=== PATIENT | male | born 1950 | race Caucasian/White ===

== ENCOUNTER 2016-07-12 13:17 | Emergency (ER) | payer BC, MEDICARE ==
[2016-07-12 13:47] VITALS: BP 138/71
--- NOTE | 2016-07-12 14:31 | UC ---
Lower Extremity/Ankle HPI - HPI Summary HPI Summary: right foot is red and swollen, the great toe joint is painful with movement and touch. - History of Current Complaint Chief Complaint: UC Stated Complaint: RT FOOT PAIN Time Seen by Provider: 07/12/16 14:03 Hx Obtained From: Patient Onset/Duration: Sudden Onset, Lasting Hours Severity Initially: Moderate Severity Currently: Moderate Pain Intensity: 6 Pain Scale Used: 0-10 Numeric Aggravating Factor(s): Standing, Ambulation Alleviating Factor(s): Rest Able to Bear Weight: Yes - Risk Factors Gout Risk Factors: Age Over 40, Male, Diabetes, Hypertension, Alcohol Abuse, Peripherial Vascular Disease - Allergies/Home Medications Allergies/Adverse Reactions: Allergies Allergy/AdvReac Type Severity Reaction Status Date / Time No Known Allergies Allergy Verified 07/12/16 13:35 Home Medications: Home Medications Eye Drops For [place] 07/12/16 [History] PMH/Surg Hx/FS Hx/Imm Hx Previously Healthy: Yes - Surgical History Surgical History: Yes Surgery Procedure, Year, and Place: BACK SURGERY- RUPTURED DISC - Family History Known Family History: Positive: Cardiac Disease, Hypertension - Social History Alcohol Use: Weekly Substance Use Type: None Smoking Status (MU): Former Smoker Type: Cigarettes When Did the Patient Quit Smoking/Using Tobacco: 7 YEARS AGO Review of Systems Constitutional: Negative Skin: Negative, Other - erythema in left foot to ankle Eyes: Negative ENT: Negative Respiratory: Negative Cardiovascular: Negative Gastrointestinal: Negative Genitourinary: Negative Motor: Negative Neurovascular: Negative Musculoskeletal: Arthralgia, Edema, Myalgia Neurological: Negative Psychological: Negative All Other Systems Reviewed And Are Negative: Yes Physical Exam Triage Information Reviewed: Yes Appearance: Well-Appearing, Well-Nourished, Pain Distress Vital Signs: Initial Vital Signs Temp 98.7 F 07/12/16 13:36 Pulse 58 07/12/16 13:36 Resp 20 07/12/16 13:36 BP 138/71 07/12/16 13:36 Pulse Ox 96 07/12/16 13:36 Vital Signs Reviewed: Yes Eye Exam: Normal Eyes: Positive: Conjunctiva Clear ENT Exam: Normal ENT: Positive: Normal ENT inspection, Hearing grossly normal, Pharynx normal, TMs normal Dental Exam: Normal Neck exam: Normal Neck: Positive: Supple, Nontender, No Lymphadenopathy Respiratory Exam: Normal Respiratory: Positive: Chest non-tender, Lungs clear, Normal breath sounds Cardiovascular Exam: Normal Cardiovascular: Positive: RRR, No Murmur, Pulses Normal Abdominal Exam: Normal Abdomen Description: Positive: Nontender, No Organomegaly, Soft Bowel Sounds: Positive: Present Musculoskeletal: Positive: Strength Intact, Edema @ - right foot Neurological Exam: Normal Neurological: Positive: Alert, Muscle Tone Normal Psychological Exam: Normal Skin: Positive: Other - no abraision, left foot is red and swollen, started 1 day ago. Lower Extremity Course/Dx - Course Course Of Treatment: hx obtained, exam performed, meds reviewed, consulted with Dr Heath. CBC obtained, treated for cellulitis, cbc obtained [place] the next few weeks. prednisone for possible gout in great toe. encouraged patient to follow up in 2 days if not improving. - Differential Dx/Diagnosis Differential Diagnosis/HQI/PQRI: Contusion, Dislocation, Fracture (Closed), Gout , Sprain, Strain Provider Diagnoses: swollen foot. erythema. right great toe pain Discharge - Discharge Plan Condition: Stable Disposition: HOME Prescriptions: Cephalexin CAP* [Keflex CAP*] 500 mg PO TID #21 cap predniSONE TAB* [Deltasone TAB*] 40 mg PO DAILY #10 tab Patient Education Materials: Cellulitis (ED) Additional Instructions: We are going to treat you for possible cellulitis with the Keflex. Blood work was obtained to look for infection. I am also prescribing prednisone to help with the inflammation of the great toe for possible Gout. You may continue with your current aleve twice a day. rest and elevate foot as much as possible.
[2016-07-12 19:24] LABS: Hematocrit 45 % (42-52); Hemoglobin 15.4 g/dl (14.0-18.0); Mean Corpuscular HGB Conc 34 g/dl (31-36); Mean Corpuscular Hemoglobin 30 pg (27-31); Mean Corpuscular Volume 88 fL (80-94); Mean Platelet Volume 9 um3 (7.4-10.4); Red Blood Count 5.08 10^6/ul (4.0-5.4); Red Cell Distribution Width 13 % (10.5-15); White Blood Count 12.7 10^3/ul (3.5-10.8)
== END 2016-07-12 15:08 | disposition home or self-care (01) ==
LOC: UCCORT 13:17
DX: M79.674 Pain in right toe(s) (principal); M79.89 Other specified soft tissue disorders; L53.9 Erythematous condition, unspecified; Z87.891 Personal history of nicotine dependence
CPT/HCPCS: 36415; 85025; 99212; G0463

== ENCOUNTER 2018-07-31 11:06 | Emergency (ER) | payer MEDICARE ==
[2018-07-31 12:18] VITALS: BP 140/86
--- NOTE | 2018-07-31 12:58 | UC ---
Skin Complaint HPI - HPI Summary HPI Summary: Pt c/o tender, erythematous area on mid left forearm at site of EMG probe that was done yesterday. Pt sates that he began to have redness and pain in left forearm last evening after having nerve conduction test yesterday with Dr. Jackman. - History of Current Complaint Chief Complaint: UCSkin Time Seen by Provider: 07/31/18 12:50 Stated Complaint: LEFT ARM CONCERN Hx Obtained From: Patient Onset/Duration: Gradual Onset, Lasting Hours, Still Present, Worse Since - onset Skin Exposure Onset/Duration: Hours Ago Timing: Constant Onset Severity: Mild Current Severity: Mild Pain Intensity: 1 Location: Discrete - left mid anterior forearm Character: Pain, Redness, Raised, Painful Aggravating Factor(s): Touch Alleviating Factor(s): Unknown Associated Signs & Symptoms: Positive: Tenderness Related History: Trauma - Allergy/Home Medications Allergies/Adverse Reactions: Allergies Allergy/AdvReac Type Severity Reaction Status Date / Time No Known Allergies Allergy Verified 07/31/18 12:05 Home Medications: Home Medications DULoxetine DR CAP* [Cymbalta CAP*] 20 mg PO DAILY 07/31/18 [History Confirmed ] PMH/Surg Hx/FS Hx/Imm Hx Previously Healthy: Yes Cardiovascular History: Cardiac Disease Neurological History: Other - needed nerve conduction test - Surgical History Surgical History: Yes Surgery Procedure, Year, and Place: BACK SURGERY- RUPTURED DISC; SKIN GRAFT FOR BROKEN LEG - Family History Known Family History: Positive: Cardiac Disease, Hypertension - Social History Occupation: Retired Lives: With Family Alcohol Use: None Substance Use Type: None Smoking Status (MU): Former Smoker Type: Cigarettes Have You Smoked in the Last Year: No When Did the Patient Quit Smoking/Using Tobacco: 7 YEARS AGO - Immunization History Most Recent Tetanus Shot: unknown Review of Systems All Other Systems Reviewed And Are Negative: Yes Constitutional: Positive: Negative Skin: Positive: Rash, Other - erythema Eyes: Positive: Negative ENT: Positive: Negative Respiratory: Positive: Negative Cardiovascular: Positive: Negative Gastrointestinal: Positive: Negative Genitourinary: Positive: Negative Motor: Positive: Negative Neurovascular: Positive: Negative Musculoskeletal: Positive: Negative Neurological: Positive: Negative Psychological: Positive: Negative Is Patient Immunocompromised?: No Physical Exam Triage Information Reviewed: Yes Appearance: Well-Appearing Vital Signs: Initial Vital Signs Temp 97.8 F 07/31/18 12:07 Pulse 53 07/31/18 12:07 Resp 18 07/31/18 12:07 BP 140/86 07/31/18 12:07 Pulse Ox 100 07/31/18 12:07 Vital Signs Reviewed: Yes Eye Exam: Normal ENT Exam: Normal Dental Exam: Normal Neck exam: Normal Respiratory Exam: Normal Respiratory: Positive: No respiratory distress Musculoskeletal Exam: Normal Musculoskeletal: Positive: Strength Intact, ROM Intact Neurological Exam: Normal Psychological Exam: Normal Skin Exam: Other - erythematous oval shaped area left mid forearm 3cm X 1 CM with firm moveable area below insertion site of EMG probe. Pt denies coagulation disorder or HX of DVT Course/Dx - Course Course Of Treatment: I discussed with the pt my concern for hematoma and pt verbalized understanding and agreed to plan of care. - Differential Diagnoses - Skin Complaint Differential Diagnoses: Cellulitis - Diagnoses Provider Diagnosis: Cellulitis of left forearm, Hematoma Discharge - Sign-Out/Discharge Documenting (check all that apply): Patient Departure All imaging exams completed and their final reports reviewed: No Studies - Discharge Plan Condition: Stable Disposition: HOME Prescriptions: Cephalexin CAP* [Keflex 500 CAP*] 500 mg PO Q8H #21 cap Patient Education Materials: Cellulitis (ED), Hematoma (ED) Referrals: Chavez Erazo MD [Primary Care Provider] - As Soon As Possible - Billing Disposition and Condition Condition: STABLE Disposition: Home
== END 2018-07-31 13:04 | disposition home or self-care (01) ==
LOC: UCCORT 11:06
DX: L03.114 Cellulitis of left upper limb (principal); S50.12XA Contusion of left forearm, initial encounter; Z87.891 Personal history of nicotine dependence; X58.XXXA Exposure to other specified factors, initial encounter; Y92.9 Unspecified place or not applicable
CPT/HCPCS: 99212; G0463

== ENCOUNTER 2018-09-19 10:47 | Day surgery (SDC) | payer MEDICARE ==
[~2018-09-19 10:47] MED LIST: Buffered Lidocaine 1% SYRIN* 1 ML/SYRINGE INTRADERM ONE; Famotidine IV* 10 MG/ML 2 ML (20 mg) IV ONE; Lactated Ringers 1000 ML Bag* 1,000 ML IV SCH
[2018-09-19] MEDS ORDERED: ceFAZolin 2 GM PREMIX in ORs 2 GM/50 ML BAG IVPB ONE (11:58)
[2018-09-19] MEDS ORDERED: Famotidine IV* 10 MG/ML 2 ML (20 mg) ONE (11:58)
[2018-09-19] MEDS ORDERED: Buffered Lidocaine 1% SYRIN* 1 ML/SYRINGE INTRADERM ONE (11:58)
[2018-09-19] MEDS ORDERED: fentaNYL* 50 MCG/ML 2 ML VIAL (100 MCG VIAL) ONE (14:56)
[2018-09-19] MEDS ORDERED: Propofol* 10 MG/ML 20 ML BTL ONE ×2 (14:56→16:28)
[2018-09-19] MEDS ORDERED: Midazolam* 1 MG/ML 5 ML VIAL (5 MG) ONE (14:56)
[2018-09-19] MEDS ORDERED: Dexamethasone IV* 4 MG/ML 1 ML (4 MG) ONE (14:56)
[2018-09-19] MEDS ORDERED: Ondansetron INJ* 2 MG/ML VIAL ONE (14:56)
[2018-09-19] MEDS ORDERED: Lidocaine 2% PF * 5 ML VIAL ONE (14:56)
[2018-09-19] MEDS ORDERED: Bupivacaine 0.25% SDV PF* 10 ML VIAL INJ ONE (15:19)
[2018-09-19] MEDS ORDERED: Naloxone* 0.4 MG/ML 1 ML VIAL IV PRN (16:24)
[2018-09-19] MEDS ORDERED: fentaNYL* 50 MCG/ML 2 ML VIAL (100 MCG VIAL) IV PRN (16:24)
[2018-09-19] MEDS ORDERED: Ondansetron INJ* 2 MG/ML VIAL IV PRN (16:24)
[2018-09-19 17:09] VITALS: BP 160/80
== END 2018-09-19 17:27 | disposition home or self-care (01) ==
LOC: OR 10:47
PROVIDERS: ATTEND Plastic Surgery
DX: G56.22 Lesion of ulnar nerve, left upper limb (principal); G47.33 Obstructive sleep apnea (adult) (pediatric); M19.90 Unspecified osteoarthritis, unspecified site; I10 Essential (primary) hypertension; M10.9 Gout, unspecified
CPT/HCPCS: J0690; J1100; J2250; J2405; J2704; J3010; J3490

== ENCOUNTER 2019-05-29 07:02 | Observation (INO) | payer MEDICARE ==
--- NOTE | 2019-05-21 15:49 | HP ---
HISTORY AND PHYSICAL: DATE OF ADMISSION/SURGERY: 05/29/19 DATE OF OFFICE VISIT: 05/21/19 SURGEON: Barbie Mathias MD * (DICTATED BY STERLING MORGAN) PROCEDURE: Left total hip arthroplasty. CHIEF COMPLAINT: Left hip pain. HISTORY OF PRESENT ILLNESS: Mr. 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 He has failed conservative treatment and elected to proceed with a left total hip arthroplasty. PAST MEDICAL HISTORY: Hypertension and sleep apnea. PAST SURGICAL HISTORY: Ulnar nerve decompression and low back surgery. CURRENT MEDICATIONS: 1. Amlodipine 5 mg a day. 2. Latanoprost. 3. Duloxetine 20 mg a day. 4. Brimonidine tartrate 0.2%. ALLERGIES: No known drug allergies. FAMILY HISTORY: Coronary artery disease, cancer, and diabetes. SOCIAL HISTORY: This 68-year-old gentleman lives with his . He does not smoke, use drugs or alcohol. REVIEW OF SYSTEMS: A complete 14-point review of systems was reviewed with the patient. It was all negative or noncontributory. He denies history of DVT, PE , hepatitis, HIV, or anesthesia problems. PHYSICAL EXAMINATION GENERAL: He is well developed, well nourished, in no acute distress. VITAL SIGNS: He stands 68 inches tall, weighs 238 pounds. His blood pressure is 146/90, his heart rate is 74. HEENT: Normocephalic, atraumatic. NECK: Supple. No palpable lymph nodes. PULMONARY: The lungs are clear to auscultation bilaterally. CARDIO: Regular rate and rhythm. Strong S1, S2. ABDOMEN: Soft, nontender, nondistended. NEUROLOGICAL: He is alert and oriented x3. MUSCULOSKELETAL: Left lower extremity: The skin is intact. There are no open wounds or abrasions. He walks with antalgic-type gait favoring his left hip. He has decreased internal and external rotation of the left hip. He is able to dorsiflex and plantar flex. He has a 2+ dorsalis pedis pulse and intact sensation. ASSESSMENT AND PLAN: Mr. Landry is a 68-year-old female with severe end- stage osteoarthritis of the left hip. He has failed conservative treatment and elected to proceed with a left total hip arthroplasty. The surgery is scheduled for 05/29/[address] Mathias discussed the risks and benefits of the surgery at today's visit and all of his questions were answered. He will follow up with Dr. Mathias 2 weeks after the surgery. STERLING MORGAN [id number]/[facility] #: [id number] CHARITY
[~2019-05-29 07:02] MED LIST changes: +Acetaminophen TAB* 325 MG PO ONE; -Famotidine IV* 10 MG/ML 2 ML (20 mg) IV ONE; +Tranexamic Acid 1,000 MG in NS 0.9% 50 ML* (outpatient use) IV SCH; +celeCOXIB CAP* 200 MG PO ONE
--- OUTSIDE RECORDS SUMMARY | 2019-05-29 07:06 | XMS REPORT | Continuity of Care Document ---
:1950 External Reference #:[id number] Author Name Barbie Mathias M.D. (transmitted by agent of provider Meredith Hassan) Address [address] [place] [address] Care Team Providers Name Role Phone Chavez Erazo MD - Internal Care Team Information Director Of [employer] [phone] Medicine Problems Active Problems Provider Date Localized, primary osteoarthritis of the pelvic Barbie Mathias M.D. Onset: 10/2018 region and thigh Difficulty breathing Julia Romo M.D. Onset: 06/19/2014 Social History Type Date Description Comments Sex Unknown ETOH Use Denies alcohol use ETOH Use Occasionally consumed wine in the past ETOH Use Occasionally consumed beer in the past Tobacco Use Start: Unknown End: Patient is a former Unknown smoker Smoking Status Reviewed: 05/21/19 Patient is a former smoker Exercise Exercises sporadically arm work 2 hrs a day Type/Frequency walking Allergies, Adverse Reactions, Alerts Description No Known Drug Allergies Medications Active Medications SIG Qnty Indications Ordering Provider Date Brimonidine Tartrate 1 drop in each Unknown 0.2% eye twice a day Solution Latanoprost 1 drop in each Barno-Lemon, 0.005% Solution eye at bed time Andrzej, OD Duloxetine HCL 1 tablet by Unknown 20mg Caps DR mouth daily Part Acetaminophen 2 every 6 hours Unknown 500mg Tablets as needed Alphagan P 1 drop both eyes Unknown 0.1% Solution twice a day Amlodipine Besylate 1 by mouth every Unknown 5mg day Tablets Ferosul 1 every other Unknown 325(65Fe) mg day. Tablets Medications Administered in Office Medication SIG Qnty Indications Ordering Provider Date Depomedrol 40MG Barbie Mathias M.D. 03/19/2019 Injection Immunizations Description No Information Available Vital Signs Date Vital Result Comment 05/21/2019 11:18am Height 68 inches Weight 238.00 lb BP Systolic 146 mmHg BP Diastolic 90 mmHg Respiratory Rate 16 /min Body Temperature 97.9 F Pain Level 0 BMI (Body Mass Index) 36.2 kg/m2 05/21/2019 8:25am Height 68 inches 5'8" Weight 239.00 lb with shoes Heart Rate 60 /min BP Systolic 120 mmHg Ra BP Diastolic 80 mmHg Ra BP Systolic Sitting 122 mmHg LA BP Diastolic Sitting 82 mmHg LA BP Systolic Standing 120 mmHg LA BP Diastolic Standing 80 mmHg LA BMI (Body Mass Index) 36.3 kg/m2 Ejection Fraction NONE Results Test Acquired Date Facility Test Result H/L Range Note Laboratory test 05/21/2019 [facility] B-Type <pending> finding [address] [place] [address] Peptide BNP [phone] Procedures Date Code Description Status 05/21/2019 94663 EKG Tracing & Interpretation Completed 03/19/2019 32159 Inj/Aspir Major JT Or Bursa W/ US Completed Medical Devices Description No Information Available Encounters Type Date Location Provider Dx Diagnosis Office Visit 03/19/2019 [facility] Barbie Mathias, M25.552 Pain in left hip 9:30a at [facility] M16.12 Unilateral primary osteoarthritis, left hip Assessments Date Code Description Provider 05/21/2019 M25.552 Pain in left hip Barbie Mathias M.D. 05/21/2019 Z01.810 Encounter for preprocedural Shivam Mullins DO [facility] cardiovascular examination 05/21/2019 M16.12 Unilateral primary osteoarthritis, left Barbie Mathias M.D. hip 05/21/2019 I10 Essential (primary) hypertension Shivam Mullins DO [facility] 05/21/2019 F17.201 Nicotine dependence, unspecified, in Shivam Mullins DO [facility] remission 05/21/2019 R06.02 Shortness of breath Shivam Mullins DO [facility] 03/19/2019 M25.552 Pain in left hip Barbie Mathias M.D. 03/19/2019 M16.12 Unilateral primary osteoarthritis, left Barbie Mathias M.D. hip Plan of Treatment Future Appointment(s):06/09/2019 1:15 pm - Barbie Mathias M.D. at [facility] at [id number]/27/2019 8:45 am - Shivam Mullins DO [facility] at [facility]05/29/2019 10:30 am - Roger Fontenot PA-C at [facility] at Wybtst3505/29/2019 10:30 am - STERLING Calderón at [facility] at Ybvhrp7905/29/2019 10:30 am - Barbie Mathias M.D. at [facility] at [id number] - Barbie Mathias M.D.M25.552 Pain in left hipFollow up:Follow up: 2 weeks after odclyiwH94.12 Unilateral primary osteoarthritis, left hip Functional Status Description No Information Available Mental Status Description No Information Available Referrals Description No Information Available
--- OUTSIDE RECORDS SUMMARY | 2019-05-29 07:06 | XMS REPORT | Continuity of Care Document ---
:1950 External Reference #:[id number] Author Name Chavez Erazo MD Address [address] [place] [id number] Care Team Providers Name Role Phone Chavez Erazo MD FACP - Care Team Information Meat Lugger [phone] Internal Medicine [facility] - Care Team Information Meat Lugger Pain Julia Romo MD - Cardiovascular Care Team Information Meat Lugger Disease Kris Flores - Otolaryngology Care Team Information Meat Lugger [phone] Nigel Henderson MD - Facial Plastic Care Team Information Meat Lugger Surgery Barbie Mathias - Orthopaedic Surgery Care Team Information Meat Lugger Abraham Patrick MD - Care Team Information Meat Lugger [phone] Gastroenterology Problems Active Problems Provider Date Obesity Chavez Erazo MD Onset: 02/07/2007 Obstructive sleep apnea syndrome Chavez Erazo MD Onset: Essential hypertension Chavez Erazo MD Onset: 07/03/2007 Mixed hyperlipidemia Chavez Erazo MD Onset: 02/28/2007 Alcoholic liver damage Chavez Erazo MD Onset: 05/02/2007 Depressive disorder Chavez Erazo MD Onset: 05/02/2007 Alcoholic fatty liver Cahvez Erazo MD Onset: 06/15/2009 Gastroesophageal reflux disease Chavez Erazo MD Onset: 05/02/2011 Large liver Chavez Erazo MD Onset: 10/30/2011 Impaired fasting glycaemia Chavez Erazo MD Onset: 02/05/2013 Spinal stenosis in cervical region Chavez Erazo MD Onset: 08/06/2018 Bilateral carpal tunnel syndrome Chavez Erazo MD Onset: 08/06/2018 Lesion of ulnar nerve Chavez Erazo MD Onset: 08/06/2018 Degenerative joint disease involving multiple Chavez Erazo MD Onset: joints Multiple skin tags Chavez Erazo MD Onset: 07/18/2017 Social History Type Date Description Comments Sex Unknown Tobacco Use Start: Unknown End: Former Cigarette Smoker 1PPD since age 19 Unknown till 57 Smoking Status Reviewed: 12/13/07 Former Cigarette Smoker 1PPD since age 19 till 57 ETOH Use 05/2013 Has consumed alcohol in Three 12 packs per the past week till early 2007. One to two 6 packs from 2007 till late 2008. "Two 12 pack a week" till 05/2013. Last use was in March of 2018. Recreational Drug Use Denies Drug Use Tobacco Use Start: Unknown End: Patient is a former Unknown smoker Exercise Type/Frequency Exercises sporadically Tattoo/Piercing Tattoo Left leg Allergies, Adverse Reactions, Alerts Description No Known Drug Allergies Medications Active Medications SIG Qnty Indications Ordering Date Provider Amlodipine Besylate take 1 tablet by 30tabs I10 Chavez A 05/16/2019 mouth daily for MD Kacey 5mg Tablets high blood pressure Duloxetine HCL Take One Capsule By 30caps F32.9 Chavez A 04/02/2018 20mg Mouth Every Day For MD Kacey Caps [facility] M25.552 M79.604 Tamsulosin HCL Take One Capsule By 30caps N40.3 Chavez Erazo, 2017 0.4mg Mouth Every Day 30 MD Capsules Minutes After Same Meal Each Day For Enlarged Prostate Apap Every night 327.23 Kris Flores 07/13/2014 Latanoprost Instill 1 drop into 365.71 Unknown 06/09/2014 0.005% both eyes daily in Solution the evening for glaucoma Alphagan P 1 drop in each eye 365.9 Unknown 07/12/2012 0.1% Solution twice daily Immunizations CPT Code Status Date Vaccine Lot # 23688 Given 02/04/2019 Influenza Vaccine Quadrivalent [id number] Preser/Antibiotic Free Im Use 04874 Given 01/24/2019 Shingrix (Shingles) Vaccine 80624 Given 01/30/2018 Influenza Virus Vaccine, Quadrivalent [id number] ([id number]), Derived From Cell 12568 Given 02/07/2017 Pneumococcal Vaccine 2Yrs Or Older [id number] 14132 Given 01/24/2017 Influenza Vaccine Not Specified Administered Age 3 And Older 01233 Given 01/24/2017 Influenza Vaccine Quadrivalent [id number] Preser/Antibiotic Free Im Use 04382 Given 02/25/2015 Influenza Virus Split 3 Yrs And Above For Flu [id number] Intramuscular Use 45073 Given 04/03/2014 Influenza Virus Split 3 Yrs And Above For Tdap [id number] Intramuscular Use 17075 Given 02/05/2013 Influenza Virus Split 3 Yrs And Above For FLU [id number] Intramuscular Use 12897 Given 05/30/2012 Zoster Shingles Vaccine For Subcutaneous Injection 19704 Given 02/26/2012 Pneumococcal Vaccine 2Yrs Or Older PNEUMO [id number] 12488 Given 02/26/2012 Tdap-Tetanus, Diphtheria Toxoids/Acellular TDAP [id number] Pertussis Vaccine 7+ 16350 Given 02/26/2012 Influenza Virus Split 3 Yrs And Above For FLU [id number] Intramuscular Use 81126 Given 03/06/2011 Influenza Virus Split 3 Yrs And Above For Intramuscular Use 58968 Given 03/29/2010 Influenza Virus Split 3 Yrs And Above For Intramuscular Use 71549 Given 05/04/2008 Influenza Virus Vaccine Split Virus Use For FLU [id number] Individual 3Yr Older 76248 Given 03/01/2007 Pneumococcal Vaccine 2Yrs Or Older PNEUMO [id number] 79519 Given 03/01/2007 Influenza Virus Vaccine Split Virus Use For INF [id number] Individual 3Yr Older 86647 Given 06/14/2004 Tetanus Toxoid Adsorbed, For Intramuscular Use Vital Signs Date Vital Result Comment 05/21/2019 9:56am Heart Rate 78 /min BP Systolic 150 mmHg BP Diastolic 80 mmHg Weight 240.00 lb 04/30/2019 11:25am Heart Rate 64 /min BP Systolic 155 mmHg BP Diastolic 85 mmHg Weight 235.00 lb Results Test Acquired Date Facility Test Result H/L Range Note CBC No Diff 05/03/2019 [facility] White Blood 11.0 10^3/uL High 3.5-10.8 [place] [address] Count [phone] Red Blood Count 4.91 10^6/uL Normal 4.18-5.48 Hemoglobin 15.4 g/dL Normal 14.0-18.0 Hematocrit 43 % Normal 42-52 Mean Corpuscular Volume 87 fL Normal 80-94 Mean Corpuscular Hemoglobin 31 pg Normal 27-31 Mean Corpuscular HGB Conc 36 g/dL Normal 31-36 Red Cell Distribution Width 14 % Normal 10-15 Platelet Count 239 10^3/uL Normal 150-450 Mean Platelet Volume 8.7 fL Normal 7.4-10.4 Comp Metabolic 05/03/2019 [facility] Sodium 139 mmol/L Normal 135-145 [place] [address] [phone] Potassium 4.2 mmol/L Normal 3.5-5.0 Chloride 105 mmol/L Normal 101-111 Co2 Carbon Dioxide 24 mmol/L Normal 22-32 Anion Gap 10 mmol/L Normal 2-11 Glucose 118 mg/dL High 70-100 Blood Urea Nitrogen 13 mg/dL Normal 6-24 Creatinine 0.84 mg/dL Normal 0.67-1.17 BUN/Creatinine Ratio 15.5 Normal 8-20 Calcium 9.1 mg/dL Normal 8.6-10.3 Total Protein 7.0 g/dL Normal 6.4-8.9 Albumin 4.7 g/dL Normal 3.2-5.2 Globulin 2.3 g/dL Normal 2-4 Albumin/Globulin Ratio 2.0 Normal 1-3 Total Bilirubin 0.80 mg/dL Normal 0.2-1.0 Alkaline Phosphatase 117 U/L High 34-104 Alt 64 U/L High 7-52 Ast 41 U/L High 13-39 Egfr Non- 91.1 >60 Egfr 110.3 >60 1 Laboratory test 05/03/2019 [facility] Hemoglobin A1c 5.6 % Normal 4.0-5.6 2 [place] [address] (Glyco HGB) [phone] GGTP 47 U/L Normal 9-64.0 3 Order 04/30/2019 [facility] [place] [address] [phone] Inr/Protime 02/05/2019 [facility] Inr 1.07 Normal 0.82-1.0 4 [place] [address] 9 [phone] Laboratory test 02/05/2019 [facility] GGTP 45 U/L Normal 9- 64.0 [place] [address] [phone] Hemoglobin A1c (Glyco HGB) 5.7 % High 4.0-5.6 5 Comp Metabolic 02/05/2019 [facility] Sodium 140 mmol/L Normal 135-[place] [address] [phone] Potassium 4.5 mmol/L Normal 3.5-5.0 Chloride 106 mmol/L Normal 101-111 Co2 Carbon Dioxide 26 mmol/L Normal 22-32 Anion Gap 8 mmol/L Normal 2-11 Glucose 128 mg/dL High 70-100 Blood Urea Nitrogen 13 mg/dL Normal 6-24 Creatinine 0.81 mg/dL Normal 0.67-1.17 BUN/Creatinine Ratio 16.0 Normal 8-20 Calcium 9.1 mg/dL Normal 8.6-10.3 Total Protein 6.6 g/dL Normal 6.4-8.9 Albumin 4.4 g/dL Normal 3.2-5.2 Globulin 2.2 g/dL Normal 2-4 Albumin/Globulin Ratio 2.0 Normal 1-3 Total Bilirubin 0.70 mg/dL Normal 0.2-1.0 Alkaline Phosphatase 117 U/L High 34-104 Alt 76 U/L High 7-52 Ast 48 U/L High 13-39 Egfr Non- 95.1 >60 Egfr 115.0 >60 6 Xray 02/05/2019 [facility] Hips, Bilateral, Min. Of 2 Veiw/Hip OA [address] [place] [address] [phone] 1 Because ethnic data is not always readily available, this report includes an eGFR for both -Americans and non- Americans. The National Kidney Disease Education Program (NKDEP) does not endorse the use of the MDRD equation for patients that are not between the ages of 18 and 70, are , have extremes of body size, muscle mass, or nutritional status, or are non- or non-. According to the National Kidney Foundation, irrespective of diagnosis, the stage of the disease is based on the level of kidney function: Stage Description GFR(mL/min/1.73 m(2)) 1 Kidney damage with normal or decreased GFR 90 2 Kidney damage with mild decrease in GFR 60-89 3 Moderate decrease in GFR 30-59 4 Severe decrease in GFR 15-29 5 Kidney failure <15 (or dialysis) 2 Therapeutic target for the treatment of diabetes mellitus patients is <7% HBA1C, and in selective patients <6.0%. Please refer to [place] [employer] Association diabetic care guidelines for further information. 3 FASTING 4 Standard intensity warfarin therapeutic range: 2.0-3.0 High intensity warfarin therapeutic range: 2.5-3.5 5 Therapeutic target for the treatment of diabetes mellitus patients is <7% HBA1C, and in selective patients <6.0%. Please refer to [place] [employer] diabetic care guidelines for further information. 6 Because ethnic data is not always readily available, this report includes an eGFR for both -Americans and non- Americans. The National Kidney Disease Education Program (NKDEP) does not endorse the use of the MDRD equation for patients that are not between the ages of 18 and 70, are , have extremes of body size, muscle mass, or nutritional status, or are non- or non-. According to the National Kidney Foundation, irrespective of diagnosis, the stage of the disease is based on the level of kidney function: Stage Description GFR(mL/min/1.73 m(2)) 1 Kidney damage with normal or decreased GFR 90 2 Kidney damage with mild decrease in GFR 60-89 3 Moderate decrease in GFR 30-59 4 Severe decrease in GFR 15-29 5 Kidney failure <15 (or dialysis) Procedures Date Code Description Status 04/30/2019 76783 Electrocardiogram Complete Completed 01/20/2019 509196145 Diabetic Retinal Eye Exam Completed 08/24/2017 84130132 Colonoscopy Completed 09/10/2012 [id number] Colonoscopy Completed Medical Devices Description No Information Available Encounters Type Date Location Provider Dx Diagnosis Office Visit 05/21/2019 Main Office Chavez Erazo, I10 Essential ( primary) 9:40a hypertension R16.0 Hepatomegaly, not elsewhere classified Office Visit 04/30/2019 11:20a Main Office Chavez Anne Z01.818 Encounter for other MD Kacey preprocedural examination I10 Essential (primary) hypertension R16.0 Hepatomegaly, not elsewhere classified K70.0 Alcoholic fatty liver R73.01 Impaired fasting glucose M25.552 Pain in left hip Office Visit 02/04/2019 10:40a Main Office Chavez Anne Z00.01 Encounter for MD Kacey general adult medical exam w abnormal findings R16.0 Hepatomegaly, not elsewhere classified K70.0 Alcoholic fatty liver I10 Essential (primary) hypertension R73.01 Impaired fasting glucose M25.552 Pain in left hip Z23 Encounter for immunization Assessments Date Code Description Provider 05/21/2019 I10 Essential (primary) hypertension Chavez Erazo MD 05/21/2019 R16.0 Hepatomegaly, not elsewhere classified Chavez Erazo MD 04/30/2019 Z01.818 Encounter for other preprocedural Chavez Erazo MD examination 04/30/2019 I10 Essential (primary) hypertension Chavez Erazo MD 04/30/2019 R16.0 Hepatomegaly, not elsewhere classified Chavez Erazo MD 04/30/2019 K70.0 Alcoholic fatty liver Chavez Erazo MD 04/30/2019 R73.01 Impaired fasting glucose Chavez Erazo MD 04/30/2019 M25.552 Pain in left hip Chavez Erazo MD 02/04/2019 Z00.01 Encounter for general adult medical Chavez Erazo MD examination with abnormal findings 02/04/2019 R16.0 Hepatomegaly, not elsewhere classified Chavez Erazo MD 02/04/2019 K70.0 Alcoholic fatty liver Chavez Erazo MD 02/04/2019 I10 Essential (primary) hypertension Chavez Erazo MD 02/04/2019 R73.01 Impaired fasting glucose Chavez Erazo MD 02/04/2019 M25.552 Pain in left hip Chavez Erazo MD 02/04/2019 Z23 Encounter for immunization Chavez Erazo MD Plan of Treatment Future Appointment(s):07/07/2019 11:00 am - Chavez Erazo MD at Main [id number]/21/2019 - Chavez Erazo MDI10 Essential (primary) hypertensionComments:Clinically stable and asymptomatic. Advised to continue Rx and will follow after stress test on BP control.R16.0 Hepatomegaly, not elsewhere classifiedComments:Mild LFT elevation in stable state.Labs d/w in detail. Functional Status Functional Condition Comment Date Status Glasses Active Mental Status Description No Information Available Referrals Refer to Reason for Referral Status Appt Date Shivam Mullins Closed 05/21/2019 [address] [place] [address] [phone] Abraham Patrick MD Closed [address] [place] [address] [phone] Barbie Mathias Sent [address] [place] [address] [place] [address] [phone]
--- OUTSIDE RECORDS SUMMARY | 2019-05-29 07:06 | XMS REPORT | Continuity of Care Document ---
:1950 External Reference #:[id number] Author Name Shivam Mullins DO FACC (transmitted by agent of provider Jeannette Zelaya) Address [address] [place] [address] Care Team Providers Name Role Phone Chavez Erazo MD - Internal Care Team Information [employer] Medicine Problems Active Problems Provider Date Localized, [...] Vital Signs Date Vital Result Comment 05/21/2019 8:25am Height 68 inches 5'8" Weight 239.00 lb with shoes Heart Rate 60 /min BP Systolic 120 mmHg Ra BP Diastolic 80 mmHg Ra BP Systolic Sitting 122 mmHg LA BP Diastolic Sitting 82 mmHg LA BP Systolic Standing 120 mmHg LA BP Diastolic Standing 80 mmHg LA BMI (Body Mass Index) 36.3 kg/m2 Ejection Fraction NONE 03/19/2019 9:49am Height 68 inches 5'8" Weight 240.00 lb Heart Rate 60 /min BP Systolic 122 mmHg BP Diastolic 84 mmHg Pain Level 8 BMI (Body Mass Index) 36.5 kg/m2 Results Test Acquired Date Facility Test Result H/L Range Note Laboratory test 05/21/2019 [facility] B-Type <pending> finding [address] [place] [address] Peptide BNP [phone] Procedures Date Code Description Status 05/21/2019 93661 EKG Tracing & Interpretation Completed 03/19/2019 27452 Inj/Aspir Major JT Or Bursa W/ US Completed Medical Devices Description No Information Available Encounters Type Date Location Provider Dx Diagnosis Office Visit 03/19/2019 [facility] Barbie Mathias, M25.552 Pain in left hip 9:30a at [facility] M16.12 Unilateral primary osteoarthritis, left hip Assessments Date Code Description Provider 05/21/2019 Z01.810 Encounter for preprocedural Shivam Mullins DO FACC cardiovascular examination 05/21/2019 I10 Essential (primary) hypertension Shivam Mullins DO FACYefri 05/21/2019 F17.201 Nicotine dependence, unspecified, in Shivam Mullins DO FACYefri remission 05/21/2019 R06.02 Shortness of breath Shivam Mullins DO FACC 03/19/2019 M25.552 Pain in left hip Barbie Mathias M.D. 03/19/2019 M16.12 Unilateral primary osteoarthritis, left Barbie Mathias M.D. hip Plan of Treatment Future Appointment(s):05/27/2019 8:45 am - hSivam Mullins DO FACC at [facility]05/29/2019 10:30 am - Roger Fontenot PA-C at [facility] at [id number]/29/2019 10:30 am - STERLING Calderón at [facility] at [id number]/29/2019 10:30 am - Barbie Mathias M.D. at [facility] at [id number] - Shivam Mullins DO FACCZ01.810 Encounter for preprocedural cardiovascular examinationNew Orders:Stress Test, Pharmacologic Nuclear ( Lexiscan), Ordered: 05/21/19Follow up:schedule stress test this Sunday with me f/u prnI10 Essential (primary) valwwsxxhjmqU95.201 Nicotine dependence, unspecified, in rupnmaohdU46.02 Shortness of breath Functional Status Description No Information Available Mental Status Description No Information Available Referrals Description No Information Available
[2019-05-29] MEDS ORDERED: Acetaminophen TAB* 325 MG ONE (07:46)
[2019-05-29] MEDS ORDERED: celeCOXIB CAP* 200 MG ONE (07:46)
[2019-05-29] MEDS ORDERED: ceFAZolin 2 GM PREMIX in ORs 2 GM/50 ML BAG ONE (07:46)
[2019-05-29] MEDS ORDERED: Midazolam* 1 MG/ML 2 ML VIAL (2 MG) ONE (08:25)
[2019-05-29] MEDS ORDERED: fentaNYL* 50 MCG/ML 2 ML VIAL (100 MCG VIAL) ONE ×3 (08:25→12:13)
[2019-05-29] MEDS ORDERED: ROPIVACAINE 5 MG/ML 30 ML BTL (0.5%) ONE (08:45)
[2019-05-29] MEDS ORDERED: HYDROmorphone INJ1* 1 MG/ML SYRINGE IV PRN (09:05)
[2019-05-29] MEDS ORDERED: Naloxone* 0.4 MG/ML 1 ML VIAL IV PRN (09:05)
[2019-05-29] MEDS ORDERED: Bupivacaine 0.25% SDV* 30 ML ONE (09:20)
[2019-05-29] MEDS ORDERED: Lidocaine 1% MPF ** 5 ML VIAL ONE (09:20)
[2019-05-29] MEDS ORDERED: Rocuronium* 10 MG/ML VIAL ONE ×2 (10:08→11:15)
[2019-05-29] MEDS ORDERED: Succinylcholine* 20 MG/ML 10 ML VIAL ONE (10:23)
[2019-05-29] MEDS ORDERED: Etomidate* 2 MG/ML 10 ML VIAL ONE (10:23)
[2019-05-29] MEDS ORDERED: Propofol* 10 MG/ML 20 ML BTL ONE (10:23)
[2019-05-29] MEDS ORDERED: Dexamethasone IV* 4 MG/ML 1 ML (4 MG) ONE (10:23)
[2019-05-29] MEDS ORDERED: EPHEDrine (Pressors)* 50 MG/ML VIAL ONE (10:29)
[2019-05-29] MEDS ORDERED: Phenylephrine 40 MCG/ML SYRINGE ONE (10:29)
[2019-05-29] MEDS ORDERED: Magnesium Hydroxide LIQ* 30 ML UDC PO PRN (12:34)
[2019-05-29] MEDS ORDERED: Acetaminophen TAB* 325 MG PO PRN (12:34)
[2019-05-29] MEDS ORDERED: Cyclobenzaprine TAB* 10 MG PO PRN (12:34)
[2019-05-29] MEDS ORDERED: Morphine INJ* 2 MG/ML 1 ML SYRINGE (TWO MG - NEW SYRINGE VERSION) IV PRN (12:34)
[2019-05-29] MEDS ORDERED: Ondansetron INJ* 2 MG/ML VIAL IV PRN (12:34)
[2019-05-29] MEDS ORDERED: diPHENhydraMINE IV* 50 MG/ML 1 ml VIAL (BENADRYL) IV PRN (12:34)
[2019-05-29] MEDS ORDERED: diPHENhydraMINE PO* 25 MG PO PRN (12:34)
[2019-05-29] MEDS ORDERED: Ondansetron ODT TAB* 4 MG PO PRN (12:34)
[2019-05-29] MEDS ORDERED: oxyCODONE TAB* 5 MG TAB PO PRN (12:34)
[2019-05-29] MEDS ORDERED: oxyCODONE/Acetamin 5/325 MG* TAB PO PRN (12:34)
[2019-05-29] MEDS: Lactated Ringers 1000 ML Bag* 1,000 ML IV SCH (14:12)
[2019-05-29] MEDS: oxyCODONE/Acetamin 5/325 MG* TAB PO PRN (14:49)
--- NOTE | 2019-05-29 15:35 | PN ---
Progress Note - Progress Note Date of Service: 05/29/19 Note: resting comfortably in bed, pain well controlled; able to DF/PF, 2+ DP pulse, intact sensation
[2019-05-29] MEDS: CMC:Brimonidine P 0.1%(NF) 1 DROP BTL BOTH EYES SCH ×3 (16:36→20:59)
--- NOTE | 2019-05-29 17:05 | CONS ---
CC: Dr. Chavez Erazo; Dr. Barbie Mathias * CONSULTATION REPORT: DATE OF CONSULT: 05/29/19 PRIMARY CARE PROVIDER: Dr. Chavez Erazo. ATTENDING PHYSICIAN: Dr. Sweta Nelson (dictated by STERLING Pearson). REQUESTING PHYSICIAN: Dr. Barbie Mathias. REASON FOR CONSULTATION: Co-medical management. HISTORY OF PRESENT ILLNESS: Mr. Landry is a 68-year-old male with a past medical history of hypertension, GERMAN, who presented to [facility] today for an elective left total hip arthroplasty. He is seen postoperatively in his room with reports of 2/10 pain. He states that he has not been up yet, but that he did roll on his side which was painful. He has no other complaints today. PAST MEDICAL HISTORY: 1. Hypertension. 2. Obstructive sleep apnea. 3. Pain. HOME MEDICATIONS: 1. Amlodipine 5 mg p.o. daily. 2. Aspirin 650 mg p.o. q.6 hours p.r.n. 3. Bismuth subsalicylate 525 mg p.o. b.i.d. p.r.n. 4. Brimonidine 0.1% one drop to both eyes b.i.d. 5. Calcium carbonate/simethicone 1 tab p.o. b.i.d. p.r.n. 6. Duloxetine DR 20 mg p.o. daily. 7. Ferrous sulfate 325 mg p.o. daily. 8. Latanoprost 0.005% one drop to both eyes at bedtime. DRUG ALLERGIES: No known drug allergies. FAMILY HISTORY: Mother at the age of 71 from [place]. Father at the age of 78 from lung/brain cancer. No family history of CVA. Mother had diabetes. SOCIAL HISTORY: The patient quit smoking in 2008. Prior to that, he smoked for 40 pack years. He drinks alcohol socially. 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 He is with 2 children. He lives alone with his . In the event that he is unable to make his own medical decision, he has appointed his Rita Landry to be his surrogate decision maker. REVIEW OF SYSTEMS: A 14-point review of systems has been performed and all the pertinent positives and negatives are in the HPI, all other systems are negative. PHYSICAL EXAM: Vital Signs: Temperature 97.5 oral, heart rate 76, respiratory rate 16, oxygen saturation 92% on room air, blood pressure 144/75. General: Mr. Landry is a well-developed, well-nourished, obese, 68-year-old white male who is sitting up in bed. He is pleasant, cooperative, and appears to be in no acute distress. HEENT: PERRL. EOMI. Visual friedman grossly intact. There is no scleral icterus or injection. Hearing is grossly intact. Oral mucous membranes are mildly dry. The pharynx is clear. There are no lesions. No erythema or exudate. Tongue is at midline. Palate elevates symmetrically. Cardiovascular: Regular rate and rhythm with S1, S2 present. No murmurs, rubs, clicks, or gallops. There is no JVD or peripheral edema. Pulmonary: Symmetrical chest expansion without use of accessory muscles. Clear to auscultation bilaterally without rhonchi, wheeze, or rales. Abdomen: Obese. Bowel sounds in all quadrants. The abdomen is soft and nontender to palpation. Musculoskeletal: The left hip has a clean, dry, intact dressing in place, foam cushion between the lower legs is in place. Neuro: The patient is awake. He is alert and oriented x3 with cranial nerves II through XII grossly intact. He is able to move his distal digits and bilateral lower extremities. Sensation is intact. ASSESSMENT AND PLAN: Mr. Landry is a 68-year-old male with a past medical history of hypertension and sleep apnea, compliant with CPAP, who presented to [facility] today for an elective left total hip arthroplasty. The patient will be admitted for: 1. Left total hip arthroplasty. Management per Ortho. Continue pain management and bowel regimen, PT. Weightbearing as tolerated. 2. Hypertension. Continue home medication, amlodipine. 3. Obstructive sleep apnea. The patient uses CPAP but has forgotten, is at home. He requests hospital equipment. 4. Pain management. Duloxetine plus acute p.r.n. pain meds per Ortho. 5. DVT prophylaxis: Per ortho team. Eliquis 2.5 mg p.o. b.i.d. 6. Code status: Full code. AT THIS TIME, THE HOSPITALIST TEAM WILL SIGN OFF. PLEASE FEEL FREE TO RECONSULT IF ANY CONCERNS ARISE. THANK YOU FOR INVOLVING US IN THE CARE OF THIS PATIENT. TIME SPENT: Approximately 30 minutes was spent on this consultation, greater than half that time was spent [id number] with the patient and his obtaining history, performing physical, and reviewing the plan of care. The case has been discussed with my attending Dr. Nelson, who is in agreement with the plan of care. STERLING KIMBROUGH [id number]/CPS #: [id number] MTDPatience
--- NOTE | 2019-05-29 17:37 | OP ---
Operative Report - Blank - Operative Report Date of Operation: 05/29/19 Note: CHIDI MACHADO 1950 Date Of Surgery: 05/29/19 Barbie Mathias MD Lighting Fixtures Decorator: Karely KATZ did help throughout the procedure with preparation of the hip, wound retraction, manipulation of the hip, and wound closure. Anesthesiologist: Dr. Louis Anesthesia Type: General Preoperative Diagnosis: Left severe degenerative osteoarthritis of the hip Postoperative Diagnosis: As above Procedure Performed: Left Total Hip Arthroplasty Complications: None Specimen: Femoral head and acetabular reamings sent to pathology. Hardware used: This is uncemented Bony total hip arthroplasty hardware for the femur a size 6 accolade II with 127 neck angle femoral component, for the acetabulum a size 56F trident II tritanium cluster hole shell with one 15 mm screw, for the insert a size 40F trident X3 polyethylene insert, and for the femoral head a size 40+0 ceramic biolox V40 femoral head. Brief history/Indication: CHIDI MACHADO was known in clinic and had a history of severe left hip pain. He failed conservative treatment with anti- inflammatories, pain pills, intra-articular injections and physical therapy. He elected to undergo left total hip arthroplasty due to continued pain and decreased quality of life. Radiographs showed severe end stage osteoarthritis of the hip with bone on bone contact. Informed consent was obtained from the patient. He understood the risks of surgery included but were not limited to: bleeding, infection, damage to nearby structures, intraoperative fracture, nerve palsy, failure of the hardware, early loosening, stiffness or loss of motion, dislocation, leg length discrepancy, anesthesia complications, stroke, heart attack, blood clot and . He wished to proceed. Intra-Operative findings: Intraoperatively the patient was noted to have severe loss of cartilage of the acetabulum and femoral head. Description of the Procedure: CHIDI MACHADO was identified in the preanesthesia unit. His left hip was marked as the correct operative side. Informed consent was signed and placed in the chart. The patient was taken to the operating room and placed under anesthesia without complication. A dillard catheter was placed. The patient was placed on the peg board with all bony prominences well padded. The left lower extremity was prepped and draped in the usual sterile fashion. Preoperative time -out was made to correctly identify the patient, side and site. Appropriate intraoperative antibiotics were given within one hour of incision. A standard posterior incision was made and carried sharply down to the lateral fascia. A new 10 blade was used to make an incision in the fascia in line with the skin incision. A charnley retractor was placed. The piriformis and conjoined tendons were identified and elevated off the posterolateral femur using electrocautery. These were tagged with number 5 Ethibond. Next electrocautery was used to make a posterolateral capsular flap and this was tagged with number 5 Ethibonds. The hip was carefully dislocated. Lesser trochanter to the center of the femoral head was measured at 62 mm. The oscillating saw was used to make the femoral neck cut. The femoral head was carefully removed. The femur was retracted anteriorly and the acetabular retractors were placed. Long-handled knife was used to sharply remove any remaining labrum from the acetabular rim. The acetabulum was sequentially reamed up to a size 56. A bleeding subchondral bone bed was obtained. A trial liner was placed and had excellent fit and stability. A 56F cup with one screw was placed and had excellent stability with appropriate anteversion and abduction angle. A size 40F liner was impacted into the acetabular shell. The liner was checked for stability and was stable. Next attention was turned to preparation of the femoral canal. A canal finder was used to enter the proximal femur. The femoral canal was sequentially broached up to a size 6 femoral broach trial. A trial neck and 40+0 trial femoral head was chosen. Lesser trochanter to center of the femoral head measurement was satisfactory. The hip was reduced and taken through a range of motion. The hip was stable in all positions with good soft tissue tension and appropriate leg lengths. The hip was dislocated and all trials were removed. The final implant chosen was a size 6 stem . This stem was impacted into the femoral canal without difficulty. The stem was stable with appropriate anteversion. The femoral head chosen was a 40+0 ceramic head. The head was impacted onto the femoral neck without difficulty. The final lesser trochanter to center of the femoral head measurement was satisfactory. The hip was reduced and taken through a range of motion. The hip was stable in all positions with good soft tissue tension and appropriate leg lengths. The hip was copiously irrigated with sterile saline. The previously tagged capsule and tendons were repaired to the posterolateral femur through two trochanteric drill holes. The lateral fascia layer was closed using number 1 vicryls. The rest of the incision was closed in a layered fashion using 0 and 2-0 vicryls. The skin was closed using 3-0 monocryl suture and Dermabond. Sterile adaptic, 4x4s and paper tape was used to cover the incision. The patients anesthesia was reversed without difficulty. He was taken to the PACU in stable condition. Intended weight-bearing will be as tolerated with posterior hip precautions.
[2019-05-29] MEDS: ceFAZolin 1 GM ADVAN(*) 1 GM in NS 0.9% 50 ML* 50 ML IVPB SCH (17:46)
[2019-05-29] MEDS: Magnesium Hydroxide LIQ* 30 ML UDC PO SCH (20:23)
[2019-05-29] MEDS: Docusate CAP* 100 MG PO SCH (20:23)
[2019-05-29] MEDS: Latanoprost 0.005%* 2.5 ml BTL BOTH EYES SCH ×2 (20:57→20:58)
[2019-05-30] MEDS: Lactated Ringers 1000 ML Bag* 1,000 ML IV SCH (00:34)
[2019-05-30] MEDS: oxyCODONE/Acetamin 5/325 MG* TAB PO PRN ×3 (01:38→14:20)
[2019-05-30] MEDS: ceFAZolin 1 GM ADVAN(*) 1 GM in NS 0.9% 50 ML* 50 ML IVPB SCH ×2 (01:39→09:41)
[2019-05-30 05:58] LABS: Hematocrit 34 % (42-52); Hemoglobin 11.9 g/dL (14.0-18.0); Mean Platelet Volume 7.8 fL (7.4-10.4); Platelet Count 213 10^3/uL (150-450)
[2019-05-30 06:14] LABS: BUN/Creatinine Ratio 16.4 (8-20); Calcium 8.2 mg/dL (8.6-10.3); EGFR African American 129.7 (>60); EGFR Non-African American 107.2 (>60); Potassium 4.2 mmol/L (3.5-5.0)
[2019-05-30] MEDS: Docusate CAP* 100 MG PO SCH (08:05)
[2019-05-30] MEDS: Magnesium Hydroxide LIQ* 30 ML UDC PO SCH (08:06)
[2019-05-30] MEDS: CMC:Brimonidine P 0.1%(NF) 1 DROP BTL BOTH EYES SCH (08:08)
[2019-05-30] MEDS ORDERED: Ferrous Sulfate TAB* 325 MG PO SCH (09:00)
[2019-05-30] MEDS ORDERED: Vitamin THERAPEUTIC TAB PO SCH (09:00)
[2019-05-30] MEDS ORDERED: DULoxetine DR CAP* 20 MG CAP.DR PO SCH (09:00)
[2019-05-30] MEDS ORDERED: Apixaban* 2.5 MG TAB PO SCH (09:00)
[2019-05-30] MEDS ORDERED: amLODIPine TAB* 5 MG PO SCH (09:00)
--- NOTE | 2019-05-30 13:42 | DS ---
Orthopedic Discharge Summary - Discharge Summary Date of Admission:05/29/19 Date of Discharge: 05/30/2019 Date of Surgery: 05/29/2019 Attending Orthopedic Provider: Dr. Mathias Pre-operative Diagnosis: Left hip osteoarthritis Operative Procedure: Left total hip arthroplasty Disposition of Patient: home Condition of Patient: Good History: CHIDI MACHADO is a 68 year old M with years of increasingly severe left hip pain. Patient has failed conservative management and has elected to undergo a left total hip replacement Hospital Course: CHIDI was admitted to [facility] on 05/29/19. Patient underwent a left total hip arthroplasty without complication followed by a brief recovery in PACU and transfer to the Short Stay Surgical Unit in stable condition. Our hospitalist service, physical therapy and occupational therapy also participated in this patients care. Post-op day 1: patient was alert and in no acute distress. Dressing was clean, dry and intact. Operative extremity dorsiflexion and plantarflexion intact, sensation intact to light touch distally, DP2+. Dressing was changed, incision was clean, dry and intact. Patient was deemed to be medically and orthopedically stable for discharge. Physical therapy goals were met. Home Medications Medication Instructions Recorded Confirmed Type Brimonidine P 0.1%(NF) [Alphagan P 1 drop BOTH EYES BID 08/20/17 05/29/19 History 0.1% (NF)] Latanoprost 0.005%* [Xalatan 1 drop BOTH EYES BEDTIME 08/20/17 05/29/19 History 0.005%*] DULoxetine DR CAP* [Cymbalta CAP*] 20 mg PO QAM 07/31/18 05/29/19 History Amlodipine Besylate [Norvasc] 5 mg PO QAM 05/21/19 05/29/19 History Aspirin TAB* [Aspirin 325 MG TAB*] 650 mg PO Q6H PRN 05/21/19 05/29/19 History Bismuth Subsalicylate 525 mg PO BID PRN 05/21/19 05/29/19 History [Pepto-Bismol Max Strength] Calcium Carbonate/Simethicone 1 each PO BID PRN 05/21/19 05/29/19 History [Jennifer-Axton Heartburn+Gas] Ferrous Sulfate TAB* 325 mg PO QAM 01/08/20 01/16/20 History Discharge Instructions following Orthopedic Surgery: Activity: * Weight Bearing as tolerated * Continue physical therapy and occupational therapy exercises as shown Hip replacements: Continue Hip Precautions- do not cross legs or bend greater than 90 degrees/squat Wound care: * OK to shower on post-op day 3, no bathing, swimming, or submerging wound. * Use gentle soap, pat dry. Cover with gauze, STEVE wrap or tape. * Visiting home nurse to do wound checks. Call Orthopedic office for: * Increased drainage * Redness * Increased pain * Fever Go to ER with shortness of breath or chest pain. Diet: * Regular diet * Increase fluids and fiber to prevent constipation. * Continue to use stool softeners, call office if no bowel motion within 48 hours. Medications See Home Medication List in your packet for medications that you should take after discharge. DVT Prophylaxis: Eliquis Dosin.5 mg, 1 tab every 12 hours x 30 days Pain Control: Percocet Dosin/325 mg 1-2 tabs by mouth every 4-6 hours as needed for pain. Maximum of 10 tabs per day. Please note that Percocet contains Tylenol (acetaminophen). Maximum daily dose of Tylenol is 4000 mg from all sources. Antibiotics are required prior to any dental work. FOLLOW UP: Follow up with Dr. Serarno] Within 10-14 days, call for appointment Please call our office with any questions or concerns ([phone])
[2019-05-30 14:54] VITALS: BP 140/70
== END 2019-05-30 15:10 | disposition home or self-care (01) ==
LOC: AA 07:02 → INTOOBSV 07:02 → SSU 12:34
PROVIDERS: ADMIT Orthopaedic Surgery Adult Reconstructive Orthopaedic Surgery; ATTEND Orthopaedic Surgery Adult Reconstructive Orthopaedic Surgery
DX: M16.12 Unilateral primary osteoarthritis, left hip (principal); M25.552 Pain in left hip; I10 Essential (primary) hypertension; G47.30 Sleep apnea, unspecified; Z79.899 Other long term (current) drug therapy; Z87.891 Personal history of nicotine dependence
CPT/HCPCS: 36415; 80048; 85014; 85018; 85049; 85730; A9270-GY; C1713; C1776; G0378; J0330; J0690; J1100; J2250; J2704; J2795; J3010; J3490